=== PATIENT | male | born 1945 | race Caucasian/White ===

== ENCOUNTER → 2023-08-11 | Outpatient (CLI) | payer MEDICARE, BC ==
--- NOTE | 2023-08-11 15:35 | US ---
EXAMINATION TYPE: US arterial LE single level DATE OF EXAM: 08/11/2023 10:47 AM CLINICAL INDICATION: Male, 77 years old with history of I73.9 PAD; non healing wound on right foot fo r over a year, is improving History of: Smoker: n Hypertension: y Diabetic: n Hyperlipidemia: y TIA/CVA: n Previous Vascular Surgery: n CAD: n ME: n Vascular Ulcers: n Claudication: n Gangrene: n Doppler Waveforms: Right: Multiphasic Left: Multiphasic Right Brachial Pressure: 142 Left Brachial Pressure: 146 Ankle-Brachial Indices: Right: 1.2 Left: 1.2 Toe Brachial Indices: Right: 0.8 Left: 0.7 IMPRESSION: 1. There is some narrowing of the distal digital arteries bilaterally.
== END | disposition home or self-care (01) ==
LOC: RADUSWWP 10:11
PROVIDERS: ATTEND Internal Medicine
DX: I73.9 Peripheral vascular disease, unspecified (principal); I10 Essential (primary) hypertension; E78.5 Hyperlipidemia, unspecified
CPT/HCPCS: 93922

== ENCOUNTER 2024-01-25 12:35 | Day surgery (SDC) | payer MEDICARE, BC ==
[2024-01-24 10:50] VITALS: BMI 28.1
[2024-01-25] MEDS: LACTATED RINGERS 1,000 ML IV SCH (12:49)
[2024-01-25] MEDS ORDERED: PROPOFOL 10 MG/ML 20 ML VIAL IV ONE (13:01)
--- NOTE | 2024-01-25 13:04 | P.GSHP ---
History of Present Illness H&P Date: 01/25/24 Chief Complaint: Abnormal Cologuard 78-year-old male here today for colonoscopy. Last colonoscopy 20 years ago. No bowel complaints. Recent Cologuard test abnormal. Past Medical History Past Medical History: Cancer, Hypertension, Osteoarthritis (OA) Additional Past Medical History / Comment(s): ventricular arrythmias,skin CA,grade 2 esophagitis,rt knee arthritis History of Any Multi-Drug Resistant Organisms: None Reported Additional Past Surgical History / Comment(s): colonoscopies x2, skin lesions,vasectomy,egd Past Anesthesia/Blood Transfusion Reactions: No Reported Reaction Additional Past Anesthesia/Blood Transfusion Reaction / Comment(s): no hx blood transfusion Smoking Status: Never smoker - Past Family History Mother Family Medical History: Cancer Additional Family Medical History / Comment(s): skin Father Family Medical History: Cancer Additional Family Medical History / Comment(s): leukemia Sister(s) Family Medical History: Cancer Additional Family Medical History / Comment(s): breast Medications and Allergies Home Medications Medication Instructions Recorded Confirmed Type Atorvastatin [Lipitor] 10 mg PO DAILY 01/24/24 01/25/24 History Cholecalciferol [Vitamin D3 (25 25 mcg PO DAILY 01/24/24 01/24/24 History Mcg = 1000 Iu)] Losartan [Cozaar] 25 mg PO QAM 01/24/24 01/25/24 History Metoprolol Tartrate [Lopressor] 25 mg PO BID 01/24/24 01/25/24 History Tamsulosin HCl [Flomax] 0.4 mg PO BID 01/24/24 01/25/24 History Ubidecarenone [Co Q-10] 200 mg PO DAILY 01/24/24 01/25/24 History hydroCHLOROthiazide [Hydrodiuril] 25 mg PO QAM 01/24/24 01/25/24 History Allergies Allergy/AdvReac Type Severity Reaction Status Date / Time No Known Allergies Allergy Verified 01/24/24 09:34 Surgical - Exam Vital Signs Temp Pulse Resp BP Pulse Ox 97.0 F L 67 18 137/70 100 01/25/24 12:53 01/25/24 12:53 01/25/24 12:53 01/25/24 12:53 01/25/24 12:53 Physical exam: General: Well-developed, well-nourished HEENT: Normocephalic, sclerae nonicteric Abdomen: Nontender, nondistended Extremities: No edema Neuro: Alert and oriented Assessment and Plan (1) Abnormal stool test Narrative/Plan: Will proceed with colonoscopy at this time. Current Visit: Yes Status: Acute Code(s): R19.5 - OTHER FECAL ABNORMALITIES SNOMED Code(s): 646614881
[2024-01-25 13:18] VITALS: TEMP 97
--- NOTE | 2024-01-25 13:26 | P.PCN ---
Date of Procedure: 01/25/24 Procedure(s) Performed: PREOPERATIVE DIAGNOSIS: Abnormal Cologuard POSTOPERATIVE DIAGNOSIS: Colon polyps, diverticulosis PROCEDURE: Colonoscopy with snare polypectomy and clip placement ANESTHESIA: MAC SURGEON: Abe Box M.D. SPECIMENS: Polyps ENDOSCOPIC PROCEDURE: The patient was placed on the endoscopy table in the left decubitus position. The Olympus colonoscope was inserted into the anus and passed under direct visualization to the base of the cecum. The appendiceal orifice was visualized. From that point the scope was slowly withdrawn inspecting all surfaces carefully. There were no neoplastic inflammatory or polypoid lesions throughout the cecum. In the ascending colon there were 3 separate polyps all removed using the snare with cautery technique. One of the ascending colon polyps was slightly larger and given its location a clip was deployed to prevent postoperative bleeding. The transverse and descending colon appeared normal. In the sigmoid colon a small polyp x 2 was seen and both removed using the snare with cautery technique. The remainder of the sigmoid and rectum was normal. There was mild diverticulosis. Digital rectal examination was normal. The patient was taken to the recovery room in stable condition per anesthesia guidelines. RECOMMENDATIONS: Await biopsy results. Anticipate repeat colonoscopy 5 years.
[2024-01-25 14:03] VITALS: BP 137/71; PULSE 69; RESP 14
== END 2024-01-25 14:30 | disposition home or self-care (01) ==
LOC: ORWHC2ENDO 12:35
PROVIDERS: ATTEND Surgery
DX: D12.2 Benign neoplasm of ascending colon (principal); I10 Essential (primary) hypertension; M17.11 Unilateral primary osteoarthritis, right knee; Z85.828 Personal history of other malignant neoplasm of skin; Z88.8 Allergy status to other drugs, medicaments and biological substances
CPT/HCPCS: 88305; 45385; J2704; 45382

== ENCOUNTER → 2025-03-09 | Day surgery (SDC) | payer MEDICARE, BC ==
[2025-03-08 10:38] VITALS: BMI 28.8
[~2025-03-09] MED LIST: ALPRAZolam 0.25 MG TAB PO PRN; ALPRAZolam 0.5 MG TAB PO PRN; ATORVASTATIN 10 MG TAB PO SCH; ATORVASTATIN 80 MG TAB PO STA; BENZOCAINE SPRAY 1 EACH MM PRN; HEPARIN SODIUM,PORCINE (1 ML) 2,500 UNIT in SODIUM CHLORIDE 0.9% 250 ML IRRIGATION PRN; HEPARIN SODIUM,PORCINE 10,000 UNIT in SODIUM CHLORIDE 0.9% 1,000 ML IRRIGATION PRN; LOSARTAN 50 MG TAB PO SCH; METOPROLOL TARTRATE 25 MG TAB PO SCH; NITROGLYCERIN SL TABS 0.4 MG TAB SUBLINGUAL PRN; RX INFO: IV CONTRAST WAS GIVEN 1 EACH MISC MISCELLANE PRN; SODIUM CHLORIDE 0.9% 1,000 ML IV SCH; fentaNYL (PF) 50 MCG/ML 2 ML AMP IVP PRN
[2025-03-09] MEDS: IV FLUID CONTINUATION 1,000 ML IV ONE ×2 (07:33→09:06)
[2025-03-09] MEDS: ASPIRIN 325 MG TAB PO STA (07:39)
[2025-03-09 07:58] VITALS: TEMP 97.6
[2025-03-09] MEDS: BENZOCAINE SPRAY 1 EACH MM ONE ×2 (09:09→09:29)
[2025-03-09] MEDS: fentaNYL (PF) 50 MCG/1 ML VIAL IVP ONE (09:29)
[2025-03-09] MEDS: MIDAZOLAM 2 MG/2 ML VIAL IVP ONE (09:29)
[2025-03-09] MEDS: MIDAZOLAM 2 MG/2 ML VIAL IV PRN (09:31)
--- NOTE | 2025-03-09 09:48 | P.PCN ---
Date of Procedure: 03/09/25 Description of Procedure: Indication: Mitral regurgitation Procedure Description: After explaining the procedure to the patient, it's risk and complications, blood pressure, heart rate and O2 saturation were monitored. The throat was sprayed with Cetacaine. Patient received 2 mg intravenous Versed, 50 mcg intravenous fentanyl. The probe was introduced into the esophagus without difficulty. Images were obtained. Following that, the probe was removed. There was no immediate complication. Findings: Left atrial size is dilated, left atrial appendage is normal. Left ventricular systolic function is borderline normal with an ejection fraction of 50 to 55%. The mitral valve is thickened with mild prolapse of the anterior mitral valve leaflets. The aortic and tricuspid valve appears to be normal. Descending thoracic aorta appears to be normal. Contrast bubble study revealed no shunting across the interatrial septum. No pericardial effusion was noted. Lipomatous hypertrophy of the interatrial septum was noted. Doppler: Pulse wave and color Doppler were obtained, and revealed severe eccentric mitral regurgitation with reversal of flow in the pulmonary vein. Moderate severe tricuspid regurgitation was noted, the estimated right ventricular systolic pressure was 55 to 60 mmHg. Trace aortic regurgitation was normal. No shunting by color Doppler study was noted. Conclusion: 1. Dilated left atrium with normal appearance of the left atrial appendage 2. Left ventricular systolic function borderline normal 3. Severe eccentric mitral regurgitation with thickening of the mitral valve leaflets and mild prolapse of the anterior mitral valve leaflets 4. Moderate severe tricuspid regurgitation with moderate severe pulmonary hypertension 5. No shunting across the interatrial septum Duration of sedation: 15 minutes.
[2025-03-09] MEDS: LIDOCAINE 1% INJ 10MG/ML (20 ML MDV) SQ ONE (09:56)
[2025-03-09] MEDS: VERAPAMIL SYRINGE (5 MG/10 ML) INTRAARTER ONE (09:58)
[2025-03-09] MEDS: HEPARIN SODIUM (1,000 UNIT/ML) 1,000 UNIT in SODIUM CHLORIDE 0.9% 1,000 ML IRRIGATION ONE (10:17)
[2025-03-09] MEDS: HEPARIN SODIUM,PORCINE (1 ML) 2,500 UNIT in SODIUM CHLORIDE 0.9% 250 ML IRRIGATION ONE (10:18)
[2025-03-09] MEDS: HEPARIN SODIUM 1,000 UN/ML (10ML VL) IVP ONE (10:22)
[2025-03-09] MEDS: IOPAMIDOL-370 100ML BTL INJ ONE (10:32)
[2025-03-09 10:51] LABS: O2 Sat Blood Gas 70.5 %
[2025-03-09 10:53] LABS: O2 Sat Blood Gas 69.5 %
[2025-03-09 10:56] LABS: O2 Sat Blood Gas 97.4 %
--- NOTE | 2025-03-09 11:56 | P.CARDCATH ---
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 Recommendations were made regarding cardiac catheterization, the risks and the complications were discussed with the patient who is in full understanding and agreement. Procedure Description: Patient was brought to [facility] in fasting semi-sedated state after receiving Fentanyl and Benadryl achieiving moderate conscious sedated state. Using Xylocaine Anesthesia and modified Seldinger technique, a 6-[place] sheath was introduced in the right radial artery . The venous access in the right basilic vein was exchanged to a 6 [place] sheath. Right heart catheterization using [place]-Kulwinder catheter was performed. Cardiac output by thermodilution was calculated. Subsequently, selective coronary angiography was performed using a 5-[place] 3.5 bend Lelia catheter. Multiple views of the coronary artery including hemiaxial views were obtained. The 6 [place] pigtail catheter was used to cross the aortic valve and LVEDP was calculated. An OTTO view of the left ventricle was performed. Following that, catheter and sheath were removed. Hemostasis was obtained with deployment of vascular band . There was no immediate complication. Patient was returned to room in stable condition. Of note, the patient received a total of 4000 units of intravenous heparin as well as intra-arterial verapamil. Findings: Fluoroscopy: Calcification of the LAD was noted Left main: This is a short size vessel, bifurcating into LAD and left circumflex, left main has no obstructive disease LAD: This is a large size vessel, reaching to the apex giving rise to the 3 small diagonal branch. The LAD proximally has intimal disease of 20 to 30%, the rest of the vessel has no high-grade stenosis Left circumflex: This is a large nondominant vessel giving rise to 2 obtuse marginal branch, the left circumflex and its branches have no obstructive disease RCA: This is a large dominant vessel bifurcating into PDA and PLV. The right coronary artery and its branches have no obstructive disease Left Ventriculogram: Performed in the OTTO view and revealed an ejection fraction of 50 to 55% with 4+ mitral regurgitation. Hemodynamics: There was no gradient across the aortic valve. Pulmonary artery systolic pressure of 38 with a diastolic of 14 with a mean of 25 mmHg. Pulmonary capillary wedge pressure A-wave of 18 V wave of 22 with a mean of 14 mmHg. Right ventricular systolic of 40 with an end-diastolic of 6 mmHg. Right atrium A wave of 10, V wave of 10 with a mean of 8 mmHg. LVEDP was 16-20 mmHg. Cardiac output by thermodilution of 6.6 L/min with an index of 3.4 L/min/m. Pulmonary artery saturation 71%, right atrial saturation 70%, femoral artery saturation 97%. Conclusion: 1. Mild disease in the proximal LAD 2. Mild pulmonary hypertension 3. 4+ mitral regurgitation Recommendations: In view of his symptoms and anatomy I have recommended to proceed with evaluation for mitral and tricuspid valve repair. In the meantime we will continue on the present medical regimen. The findings and the recommendations were discussed with the patient and the family and they were in full understanding and agreement. Duration of sedation is 40 minutes.
[2025-03-09 18:08] VITALS: BP 135/78; PULSE 70; RESP 16
== END | disposition home or self-care (01) ==
LOC: CATHCVL 07:18
PROVIDERS: ATTEND Internal Medicine Interventional Cardiology
DX: I08.1 Rheumatic disorders of both mitral and tricuspid valves (principal); I27.20 Pulmonary hypertension, unspecified; I10 Essential (primary) hypertension; E78.2 Mixed hyperlipidemia; I49.3 Ventricular premature depolarization; Z79.899 Other long term (current) drug therapy
CPT/HCPCS: 93312; 93320; 93325; 85018; 82810; C1769 ×3; C1894; C1751; J2250; J1644 ×2; J2003; Q9967; J3010